=== PATIENT | female | born 1955 | race Caucasian/White ===

== ENCOUNTER 2023-10-15 12:48 | Inpatient (IN) | payer MEDICARE ==
[~2023-10-15] VITALS: Ht 172.7 cm; Wt 143.3 kg
[2023-10-15 13:36] LABS: BASOPHILS % 0.5 % (0.0-1.0); EOSINOPHILS # (AUTO) 0.1 (0.0-0.4); EOSINOPHILS % 1.2 % (0.0-6.0); HEMATOCRIT 46.6 % (34.2-44.1); HEMOGLOBIN 13.1 g/dL (12.0-16.0); LYMPHOCYTES # (AUTO) 0.9 (1.0-3.2); LYMPHOCYTES % 16.3 % (18.0-39.1); MEAN CORPUSCULAR HEMOGLOBIN 25.1 pg (28-32); MEAN CORPUSCULAR HGB CONC 28.1 g/dL (31-35); MEAN CORPUSCULAR VOLUME 89.4 fL (81-99); MONOCYTES # (AUTO) 0.5 (0.2-0.8); MONOCYTES % 8.1 % (4.4-11.3); NEUTROPHILS # (AUTO) 4.2 (2.1-6.9); NEUTROPHILS % 73.6 % (38.7-80.0); PLATELET COUNT 218 x10e3/uL (140-360); RED BLOOD COUNT 5.21 x10e6/uL (3.6-5.1); RED CELL DISTRIBUTION WIDTH 15.4 % (11.7-14.4); WHITE BLOOD COUNT 5.77 x10e3/uL (4.8-10.8)
[2023-10-15 13:52] LABS: ALBUMIN 3.4 g/dL (3.5-5.0); ALBUMIN/GLOBULIN RATIO 0.8 (0.8-2.0); ANION GAP 14.3 mmol/L (8-16); BILIRUBIN,TOTAL 1.6 mg/dL (0.2-1.2); CALCIUM 9.4 mg/dL (8.4-10.2); CREATININE, SERUM 0.98 mg/dL (0.57-1.11); TOTAL PROTEIN 7.8 g/dL (6.5-8.1)
[2023-10-15 13:54] LABS: POTASSIUM 5.3 mmol/L (3.5-5.1)
[2023-10-15 13:59] LABS: TROPONIN I 0.071 ng/mL (0-0.300)
[2023-10-15] MEDS ORDERED: IOPAMIDOL 370 MG/ML 100 ML INFUS..BTL INJ ONE (14:20)
[2023-10-15 15:14] LABS: ALBUMIN 3.3 g/dL (3.5-5.0); ALBUMIN/GLOBULIN RATIO 0.8 (0.8-2.0); ANION GAP 10.9 mmol/L (8-16); BILIRUBIN,TOTAL 1.5 mg/dL (0.2-1.2); CALCIUM 9.2 mg/dL (8.4-10.2); CREATININE, SERUM 0.96 mg/dL (0.57-1.11); POTASSIUM 4.9 mmol/L (3.5-5.1); TOTAL PROTEIN 7.4 g/dL (6.5-8.1)
[2023-10-15] MEDS ORDERED: SODIUM CHLORIDE FLUSH 10 ML SYR INJ PRN (16:00)
[2023-10-15] MEDS ORDERED: ONDANSETRON HCL INJ 2MG/ML 2ML 2 MG/ML VIAL IV PRN (16:00)
[2023-10-15] MEDS: FUROSEMIDE INJ 10 MG/ML 4 ML VIAL IV ONE (16:11)
[2023-10-15 17:47] VITALS: BP 117/57; PULSE 94; RESP 20; O2SAT 97
[2023-10-15 18:00] VITALS: BP 117/57; PULSE 94; RESP 20; O2SAT 97
[2023-10-15] MEDS ORDERED: vitamin b12 IM (18:06)
[2023-10-15] MEDS ORDERED: B 12 (18:06)
[2023-10-15] MEDS ORDERED: SYNTHROID100 MCG PO (18:06)
[2023-10-15] MEDS ORDERED: VITAMIN D3250 MCG PO (18:06)
[2023-10-15] MEDS ORDERED: LANTUS 3ML100 UNITS/ SC (19:13)
[2023-10-15 20:00] VITALS: BP 157/96; PULSE 106; RESP 21; TEMP 97.7; O2SAT 95
[2023-10-15 20:40] VITALS: BP 157/96; PULSE 106; PULSE 206; RESP 21; TEMP 97.7; O2SAT 95
[2023-10-15 21:00] VITALS: BP 157/96; PULSE 106; PULSE 206; RESP 21; TEMP 97.7; O2SAT 95
[2023-10-16] VITALS (53 sets, daily range): BP systolic 112–207; BP diastolic 66–157; PULSE 87–109; RESP 17–30; TEMP 97.1–98.9; O2SAT 88–100
[2023-10-16 06:07] LABS: BASOPHILS % 0.4 % (0.0-1.0); EOSINOPHILS % 0.5 % (0.0-6.0); HEMOGLOBIN 13.7 g/dL (12.0-16.0); LYMPHOCYTES # (AUTO) 0.8 (1.0-3.2); LYMPHOCYTES % 10.4 % (18.0-39.1); MEAN CORPUSCULAR HGB CONC 27.4 g/dL (31-35); MEAN CORPUSCULAR VOLUME 91.1 fL (81-99); MONOCYTES # (AUTO) 0.8 (0.2-0.8); MONOCYTES % 10.4 % (4.4-11.3); NEUTROPHILS # (AUTO) 5.7 (2.1-6.9); NEUTROPHILS % 77.5 % (38.7-80.0); PLATELET COUNT 260 x10e3/uL (140-360); RED BLOOD COUNT 5.49 x10e6/uL (3.6-5.1); RED CELL DISTRIBUTION WIDTH 15.2 % (11.7-14.4); WHITE BLOOD COUNT 7.34 x10e3/uL (4.8-10.8)
[2023-10-16 06:13] LABS: ABG PCO2 118 mmHg (35-45); ABG PH 7.16 (7.35-7.45); ABG PO2 85 mmHg (80-105)
[2023-10-16 06:14] LABS: ABG HCO3 42 mmol/L (22-26); ABG TCO2 45
[2023-10-16] MEDS ORDERED: MAGNESIUM/ALUMINUM/SIMETHICONE 30 ML UDC PO PRN (06:15)
[2023-10-16] MEDS ORDERED: GUAIFENESIN/DEXTROMETHORPHAN LIQD 5 ML UDC PO PRN (06:15)
[2023-10-16] MEDS ORDERED: MELATONIN 3 MG TAB PO PRN (06:15)
[2023-10-16] MEDS ORDERED: DEXTROSE 50% SYRINGE 50 ML IV PRN (06:15)
[2023-10-16 06:27] LABS: TROPONIN I 0.031 ng/mL (0-0.300)
[2023-10-16] MEDS: FUROSEMIDE INJ 10 MG/ML 4 ML VIAL IV STA (06:51)
[2023-10-16] MEDS: INSULIN REGULAR, HUMAN 100 UNIT/1 ML SQ SCH (06:53)
[2023-10-16] MEDS: METHYLPREDNISOLONE SOD SUCC 125 MG/2ML VIAL IV ONE (06:57)
[2023-10-16] MEDS: INSULIN GLARGINE 100 UNITS/ML VIAL SQ SCH (07:58)
[2023-10-16] MEDS: CEFTRIAXONE 2 GM in SODIUM CHLORIDE 0.9% 100 ML IV SCH (07:58)
[2023-10-16 08:38] LABS: ABG HCO3 44 mmol/L (22-26); ABG PCO2 87 mmHg (35-45); ABG PH 7.31 (7.35-7.45); ABG PO2 156 mmHg (80-105); ABG TCO2 47
[2023-10-16] MEDS ORDERED: POLYETHYLENE GLYCOL 3350 17 GM PACK PO PRN (08:45)
[2023-10-16] MEDS: IPRATROPIUM BROMIDE 0.02% 2.5 ML NEB NEB SCH (08:55)
[2023-10-16] MEDS: ALBUTEROL SULF 0.083% NEB SOLN 3 ML NEB NEB PRN (08:55)
[2023-10-16] MEDS: DOCUSATE SODIUM 100 MG CAP PO SCH (09:00)
[2023-10-16 09:24] LABS: ALBUMIN 3.3 g/dL (3.5-5.0); ALBUMIN/GLOBULIN RATIO 0.7 (0.8-2.0); ANION GAP 15.1 mmol/L (8-16); BILIRUBIN,TOTAL 1.4 mg/dL (0.2-1.2); CALCIUM 9.2 mg/dL (8.4-10.2); CHOL/HDL RATIO 2.7 (3.0-3.6); CREATININE, SERUM 1.16 mg/dL (0.57-1.11); MAGNESIUM 2.2 MG/DL (1.3-2.1); PHOSPHORUS 6.6 MG/DL (2.3-4.7); TOTAL PROTEIN 7.8 g/dL (6.5-8.1)
[2023-10-16 09:25] LABS: POTASSIUM 6.1 mmol/L (3.5-5.1)
[2023-10-16 09:45] LABS: FREE T4 (FREE THYROXINE) 1.01 ng/dL (0.8-1.8); THYROID STIMULATING HORMONE 0.819 uIU/mL (0.350-4.940)
[2023-10-16 09:48] LABS: TROPONIN I 0.04 ng/mL (0-0.300)
[2023-10-16] MEDS: FAMOTIDINE 20 MG/2 ML VIAL IV SCH (10:22)
[2023-10-16] MEDS: HYDRALAZINE HCL 20 MG/ML VIAL IV PRN (11:17)
[2023-10-16 13:19] LABS: CLARITY,URINE CLEAR (CLEAR); COLOR,URINE YELLOW (YELLOW); PH,URINE 5.5 (5 - 7)
[2023-10-16 13:20] LABS: BILIRUBIN,URINE NEGATIVE (NEGATIVE); GLUCOSE, URINE 500 (NEGATIVE); KETONES,URINE NEGATIVE (NEGATIVE); LEUKOCYTE ESTERASE ,URINE NEGATIVE (NEGATIVE); NITRITE,URINE NEGATIVE (NEGATIVE); PROTEIN,URINE DIPSTICK NEGATIVE (NEGATIVE); URINE UROBILINOGEN 0.2 mg/dL (0.2 - 1)
[2023-10-16 13:30] LABS: BACTERIA,URINE FEW /HPF; EPITHELIAL CELLS,URINE FEW /LPF; HYALINE CASTS 0-1 (0-1); WBC,URINE (MAN) 0-5 /HPF (0-5)
[2023-10-16 13:43] LABS: TROPONIN I 0.034 ng/mL (0-0.300)
[2023-10-16] MEDS ORDERED: IOPAMIDOL 370 MG/ML 100 ML INFUS..BTL INJ ONE (15:07)
[2023-10-16] MEDS: ENOXAPARIN SOD INJ 40 MG/0.4 ML SYR SC SCH (16:00)
[2023-10-16] MEDS: FUROSEMIDE INJ 10 MG/ML 4 ML VIAL IV ONE (16:47)
[2023-10-16 16:56] LABS: ABG PH 7.36 (7.35-7.45)
[2023-10-16 16:57] LABS: ABG HCO3 45 mmol/L (22-26); ABG PCO2 76 mmHg (35-45); ABG PO2 72 mmHg (80-105); ABG TCO2 47
[2023-10-17] VITALS (15 sets, daily range): BP systolic 99–136; BP diastolic 63–80; PULSE 85–101; RESP 18–29; TEMP 97.9–99.3; O2SAT 88–100
[2023-10-17] MEDS: LEVOTHYROXINE SODIUM 100 MCG TAB PO SCH (06:41)
[2023-10-17 07:00] LABS: BASOPHILS % 0.1 % (0.0-1.0); HEMATOCRIT 42.8 % (34.2-44.1); HEMOGLOBIN 12.4 g/dL (12.0-16.0); LYMPHOCYTES # (AUTO) 0.7 (1.0-3.2); MEAN CORPUSCULAR HEMOGLOBIN 25.4 pg (28-32); MEAN CORPUSCULAR VOLUME 87.5 fL (81-99); MONOCYTES % 12.7 % (4.4-11.3); NEUTROPHILS # (AUTO) 6.4 (2.1-6.9); NEUTROPHILS % 77.7 % (38.7-80.0); PLATELET COUNT 214 x10e3/uL (140-360); RED BLOOD COUNT 4.89 x10e6/uL (3.6-5.1); RED CELL DISTRIBUTION WIDTH 15.1 % (11.7-14.4); WHITE BLOOD COUNT 8.21 x10e3/uL (4.8-10.8)
[2023-10-17 07:20] LABS: ALBUMIN 3.1 g/dL (3.5-5.0); ALBUMIN/GLOBULIN RATIO 0.8 (0.8-2.0); ANION GAP 11.4 mmol/L (8-16); CREATININE, SERUM 0.93 mg/dL (0.57-1.11); POTASSIUM 4.4 mmol/L (3.5-5.1); TOTAL PROTEIN 6.8 g/dL (6.5-8.1)
[2023-10-17] MEDS: INSULIN GLARGINE 100 UNITS/ML VIAL SQ SCH (08:06)
[2023-10-17] MEDS: ASPIRIN 81 MG CHEW TAB PO ONE (18:50)
[2023-10-18] VITALS (12 sets, daily range): BP systolic 109–157; BP diastolic 40–95; PULSE 92–102; RESP 19–22; TEMP 97.6–98.9; O2SAT 92–97
[2023-10-18 06:20] LABS: BASOPHILS % 0.5 % (0.0-1.0); EOSINOPHILS # (AUTO) 0.1 (0.0-0.4); EOSINOPHILS % 1.3 % (0.0-6.0); HEMATOCRIT 42.4 % (34.2-44.1); HEMOGLOBIN 12.1 g/dL (12.0-16.0); LYMPHOCYTES % 12.8 % (18.0-39.1); MEAN CORPUSCULAR HEMOGLOBIN 25.1 pg (28-32); MEAN CORPUSCULAR HGB CONC 28.5 g/dL (31-35); MONOCYTES # (AUTO) 0.9 (0.2-0.8); MONOCYTES % 11.5 % (4.4-11.3); NEUTROPHILS # (AUTO) 5.7 (2.1-6.9); NEUTROPHILS % 73.5 % (38.7-80.0); PLATELET COUNT 208 x10e3/uL (140-360); RED BLOOD COUNT 4.82 x10e6/uL (3.6-5.1); RED CELL DISTRIBUTION WIDTH 15.3 % (11.7-14.4); WHITE BLOOD COUNT 7.74 x10e3/uL (4.8-10.8)
[2023-10-18 06:45] LABS: ANION GAP 15.3 mmol/L (8-16); CALCIUM 8.5 mg/dL (8.4-10.2); CREATININE, SERUM 0.83 mg/dL (0.57-1.11); MAGNESIUM 2.2 MG/DL (1.3-2.1); PHOSPHORUS 4.4 MG/DL (2.3-4.7); POTASSIUM 4.3 mmol/L (3.5-5.1)
[2023-10-18] MEDS: SODIUM CHLORIDE 0.9% 250ML 250 ML ONE (07:05)
[2023-10-19] VITALS (12 sets, daily range): BP systolic 120–172; BP diastolic 56–102; PULSE 75–104; RESP 18–25; TEMP 97.8–99.2; O2SAT 3–98
[2023-10-19 11:01] LABS: ABG PH 7.26 (7.35-7.45)
[2023-10-19 11:02] LABS: ABG HCO3 44 mmol/L (22-26); ABG PCO2 98 mmHg (35-45); ABG PO2 69 mmHg (80-105); ABG TCO2 47
[2023-10-19] MEDS ORDERED: ONDANSETRON HCL 4 MG ORAL DISINTEGRATING TAB PO PRN (12:45)
[2023-10-20] VITALS (16 sets, daily range): BP systolic 112–163; BP diastolic 58–89; PULSE 71–101; RESP 16–24; TEMP 97.6–98.4; O2SAT 94–100
[2023-10-20] MEDS: ACETAMINOPHEN 325 MG TAB PO PRN (06:50)
[2023-10-20] MEDS: AZITHROMYCIN 250 MG TAB PO SCH (06:50)
[2023-10-20 06:59] LABS: ANION GAP 8.5 mmol/L (8-16); CREATININE, SERUM 0.72 mg/dL (0.57-1.11); POTASSIUM 4.5 mmol/L (3.5-5.1)
[2023-10-20 07:02] LABS: BASOPHILS % 0.6 % (0.0-1.0); EOSINOPHILS # (AUTO) 0.2 (0.0-0.4); EOSINOPHILS % 3.3 % (0.0-6.0); HEMATOCRIT 46.8 % (34.2-44.1); LYMPHOCYTES # (AUTO) 0.8 (1.0-3.2); LYMPHOCYTES % 11.3 % (18.0-39.1); MEAN CORPUSCULAR HEMOGLOBIN 25.5 pg (28-32); MEAN CORPUSCULAR HGB CONC 27.8 g/dL (31-35); MEAN CORPUSCULAR VOLUME 91.9 fL (81-99); MONOCYTES # (AUTO) 0.7 (0.2-0.8); MONOCYTES % 10.2 % (4.4-11.3); NEUTROPHILS # (AUTO) 5.3 (2.1-6.9); NEUTROPHILS % 74.2 % (38.7-80.0); PLATELET COUNT 166 x10e3/uL (140-360); RED BLOOD COUNT 5.09 x10e6/uL (3.6-5.1); RED CELL DISTRIBUTION WIDTH 15.4 % (11.7-14.4); WHITE BLOOD COUNT 7.18 x10e3/uL (4.8-10.8)
[2023-10-20] MEDS ORDERED: CEFTRIAXONE 2 GM VIAL ONE (08:04)
[2023-10-20] MEDS: IBUPROFEN 600 MG TAB PO PRN (08:10)
[2023-10-20] MEDS: NYSTATIN 15 GM POWDER UD BTL TOP SCH (17:32)
[2023-10-21] MEDS ORDERED: MUPIROCIN 2% OINT 22 GM TUBE TOP SCH (09:00)
== END 2023-10-20 18:23 | DRG 291 ==
LOC: ER 13:21 → ERHOLD 15:52 → MED/SURG2 16:56 → ICU 10-16 06:26 → OBSVTOIN 10-16 09:08 → MED/SURG2 10-17 16:40 → ICU 10-19 15:19
PROVIDERS: ADMIT Internal Medicine; ATTEND Internal Medicine
PROC: 5A09357 Assistance with Respiratory Ventilation, Less than 24 Consecutive Hours, Continuous Positive Airway Pressure (ICD-10-PCS; principal; 2023-10-16)
PROC: 4A033R1 Measurement of Arterial Saturation, Peripheral, Percutaneous Approach (ICD-10-PCS; 2023-10-16)
DX: I11.0 Hypertensive heart disease with heart failure (principal); G93.41 Metabolic encephalopathy; J96.22 Acute and chronic respiratory failure with hypercapnia; I50.31 Acute diastolic (congestive) heart failure; J96.21 Acute and chronic respiratory failure with hypoxia; E66.2 Morbid (severe) obesity with alveolar hypoventilation; Z68.42 Body mass index [BMI] 45.0-49.9, adult; E11.65 Type 2 diabetes mellitus with hyperglycemia; R53.81 Other malaise; G25.3 Myoclonus; E53.8 Deficiency of other specified B group vitamins; Z66 Do not resuscitate; E03.9 Hypothyroidism, unspecified; E11.40 Type 2 diabetes mellitus with diabetic neuropathy, unspecified; Z99.81 Dependence on supplemental oxygen; Z20.822 Contact with and (suspected) exposure to COVID-19
CPT/HCPCS: 36415; 36569; 36600; 70450; 71045; 71275; 74177; 80048; 80053; 80061; 81001; 82550; 82607; 82805; 82948; 83036; 83690; 83735; 83880; 84100; 84132; 84439; 84443; 84484; 85025; 87040; 87086; 87400; 93005; 93306; 94660; 94760; 94799; 96372; 99252; 99284; G0378; J0360; J0696; J1650; J1815; J1940; J2930; J7050; Q9967; U0002

== ENCOUNTER 2024-05-12 13:49 | Inpatient (IN) | payer MEDICARE, OTHER ==
[~2024-05-12] VITALS: Ht 172.7 cm; Wt 171.5 kg
[~2024-05-12 13:49] MED LIST: B 12; LANTUS 3ML100 UNITS/ SC; SYNTHROID100 MCG PO; VITAMIN D3250 MCG PO; vitamin b12 IM
[2024-05-12 13:54] VITALS: TEMP 98.8
[2024-05-12 16:42] VITALS: PULSE 85; RESP 22; O2SAT 96
[2024-05-12 16:44] LABS: BASOPHILS % 0.3 % (0.0-1.0); EOSINOPHILS # (AUTO) 0.4 (0.0-0.4); EOSINOPHILS % 6.3 % (0.0-6.0); HEMATOCRIT 41.1 % (34.2-44.1); HEMOGLOBIN 11.7 g/dL (12.0-16.0); LYMPHOCYTES # (AUTO) 0.9 (1.0-3.2); LYMPHOCYTES % 12.7 % (18.0-39.1); MEAN CORPUSCULAR HEMOGLOBIN 25.6 pg (28-32); MEAN CORPUSCULAR HGB CONC 28.5 g/dL (31-35); MEAN CORPUSCULAR VOLUME 89.9 fL (81-99); MONOCYTES # (AUTO) 0.7 (0.2-0.8); MONOCYTES % 9.6 % (4.4-11.3); NEUTROPHILS # (AUTO) 4.8 (2.1-6.9); NEUTROPHILS % 70.7 % (38.7-80.0); PLATELET COUNT 195 x10e3/uL (140-360); RED BLOOD COUNT 4.57 x10e6/uL (3.6-5.1); RED CELL DISTRIBUTION WIDTH 16.5 % (11.7-14.4); WHITE BLOOD COUNT 6.78 x10e3/uL (4.8-10.8)
[2024-05-12 17:02] LABS: ANION GAP 15.8 mmol/L (8-16); CALCIUM 9.1 mg/dL (8.4-10.2); CREATININE, SERUM 0.87 mg/dL (0.57-1.11); POTASSIUM 4.8 mmol/L (3.5-5.1)
[2024-05-12 18:00] VITALS: PULSE 92; RESP 18
[2024-05-12 20:00] VITALS: BP 145/72; PULSE 92; RESP 19; TEMP 98.2; O2SAT 98
[2024-05-12] MEDS ORDERED: LEVOTHYROXINE100 MCG PO (20:04)
[2024-05-12] MEDS ORDERED: VITAMIN D250 MCG PO (20:04)
[2024-05-12] MEDS ORDERED: FUROSEMIDE40 MG PO (20:04)
[2024-05-12 21:00] VITALS: BP 145/72; PULSE 92; RESP 19; TEMP 98.2; O2SAT 98
[2024-05-13] VITALS (16 sets, daily range): BP systolic 126–174; BP diastolic 63–86; PULSE 69–107; RESP 16–27; TEMP 97.9–98.6; O2SAT 94–100
[2024-05-13 07:23] LABS: BASOPHILS % 0.5 % (0.0-1.0); EOSINOPHILS # (AUTO) 0.3 (0.0-0.4); EOSINOPHILS % 5.7 % (0.0-6.0); HEMATOCRIT 43.8 % (34.2-44.1); HEMOGLOBIN 12.2 g/dL (12.0-16.0); LYMPHOCYTES # (AUTO) 0.7 (1.0-3.2); LYMPHOCYTES % 11.4 % (18.0-39.1); MEAN CORPUSCULAR HEMOGLOBIN 25.7 pg (28-32); MEAN CORPUSCULAR HGB CONC 27.9 g/dL (31-35); MEAN CORPUSCULAR VOLUME 92.2 fL (81-99); MONOCYTES # (AUTO) 0.6 (0.2-0.8); MONOCYTES % 9.6 % (4.4-11.3); NEUTROPHILS # (AUTO) 4.2 (2.1-6.9); NEUTROPHILS % 72.5 % (38.7-80.0); PLATELET COUNT 203 x10e3/uL (140-360); RED BLOOD COUNT 4.75 x10e6/uL (3.6-5.1); RED CELL DISTRIBUTION WIDTH 16.6 % (11.7-14.4); WHITE BLOOD COUNT 5.81 x10e3/uL (4.8-10.8)
[2024-05-13 07:52] LABS: ANION GAP 10.1 mmol/L (8-16); CALCIUM 9.2 mg/dL (8.4-10.2); CREATININE, SERUM 0.89 mg/dL (0.57-1.11); POTASSIUM 5.1 mmol/L (3.5-5.1)
[2024-05-13] MEDS ORDERED: DEXTROSE 50% SYRINGE 50 ML IV PRN (09:15)
[2024-05-13] MEDS: FUROSEMIDE INJ 10 MG/ML 4 ML VIAL IV SCH (10:11)
[2024-05-13] MEDS: LEVOTHYROXINE SODIUM 100 MCG TAB PO SCH (10:11)
[2024-05-13] MEDS: INSULIN GLARGINE 100 UNITS/ML VIAL SQ ONE (10:12)
[2024-05-13] MEDS: INSULIN LISPRO 100 UNIT/1 ML 3ML VIAL SQ ONE (10:13)
[2024-05-13] MEDS: POTASSIUM CHLORIDE 10MEQ EA PO SCH (10:19)
[2024-05-13] MEDS: INSULIN LISPRO 100 UNIT/1 ML 3ML VIAL SQ SCH (11:58)
[2024-05-13] MEDS ORDERED: LABETALOL HCL 5 MG/ML 20ML VIAL IV PRN (13:30)
[2024-05-13 14:36] LABS: ABG PH 7.19 (7.35-7.45)
[2024-05-13 14:37] LABS: ABG PCO2 116 mmHg (35-45); ABG PO2 107 mmHg (80-105)
[2024-05-13 14:38] LABS: ABG HCO3 44 mmol/L (22-26); ABG TCO2 47
[2024-05-13 16:31] LABS: ABG PH 7.27 (7.35-7.45)
[2024-05-13 16:32] LABS: ABG HCO3 44 mmol/L (22-26); ABG PCO2 98 mmHg (35-45); ABG PO2 81 mmHg (80-105); ABG TCO2 47
[2024-05-13] MEDS: ENOXAPARIN SOD INJ 40 MG/0.4 ML SYR SC SCH (19:22)
[2024-05-13] MEDS: INSULIN GLARGINE 100 UNITS/ML VIAL SQ SCH (20:25)
[2024-05-14] VITALS (17 sets, daily range): BP systolic 116–150; BP diastolic 61–78; PULSE 65–84; RESP 15–28; TEMP 97.9–98.4; O2SAT 94–100
[2024-05-14 06:33] LABS: BASOPHILS % 0.7 % (0.0-1.0); EOSINOPHILS # (AUTO) 0.2 (0.0-0.4); EOSINOPHILS % 2.8 % (0.0-6.0); HEMATOCRIT 41.5 % (34.2-44.1); HEMOGLOBIN 11.4 g/dL (12.0-16.0); LYMPHOCYTES # (AUTO) 0.7 (1.0-3.2); LYMPHOCYTES % 12.5 % (18.0-39.1); MEAN CORPUSCULAR HEMOGLOBIN 25.4 pg (28-32); MEAN CORPUSCULAR HGB CONC 27.5 g/dL (31-35); MEAN CORPUSCULAR VOLUME 92.6 fL (81-99); MONOCYTES # (AUTO) 0.6 (0.2-0.8); MONOCYTES % 10.4 % (4.4-11.3); NEUTROPHILS # (AUTO) 3.9 (2.1-6.9); PLATELET COUNT 194 x10e3/uL (140-360); RED BLOOD COUNT 4.48 x10e6/uL (3.6-5.1); RED CELL DISTRIBUTION WIDTH 16.2 % (11.7-14.4); WHITE BLOOD COUNT 5.36 x10e3/uL (4.8-10.8)
[2024-05-14 06:58] LABS: ANION GAP 9.9 mmol/L (8-16); CREATININE, SERUM 0.76 mg/dL (0.57-1.11); POTASSIUM 4.9 mmol/L (3.5-5.1)
[2024-05-14 07:19] LABS: MAGNESIUM 2.3 MG/DL (1.3-2.1); PHOSPHORUS 3.3 MG/DL (2.3-4.7)
[2024-05-14 08:56] LABS: ABG HCO3 45 mmol/L (22-26); ABG PCO2 92 mmHg (35-45); ABG PO2 93 mmHg (80-105); ABG TCO2 48
[2024-05-14 09:53] LABS: THYROID STIMULATING HORMONE 0.385 uIU/mL (0.350-4.940)
[2024-05-14] MEDS: AMMONIUM LACTATE 12% LOTION 225GM BTL TOP SCH (11:18)
[2024-05-14] MEDS: INSULIN GLARGINE 100 UNITS/ML VIAL SQ SCH (20:02)
[2024-05-15] VITALS (8 sets, daily range): BP systolic 118–158; BP diastolic 65–83; PULSE 69–86; RESP 18–28; TEMP 98.5–98.8; O2SAT 90–98
[2024-05-15 06:43] LABS: BASOPHILS % 0.4 % (0.0-1.0); EOSINOPHILS # (AUTO) 0.3 (0.0-0.4); EOSINOPHILS % 5.3 % (0.0-6.0); HEMATOCRIT 40.7 % (34.2-44.1); HEMOGLOBIN 11.2 g/dL (12.0-16.0); LYMPHOCYTES # (AUTO) 0.8 (1.0-3.2); LYMPHOCYTES % 15.4 % (18.0-39.1); MEAN CORPUSCULAR HEMOGLOBIN 25.5 pg (28-32); MEAN CORPUSCULAR HGB CONC 27.5 g/dL (31-35); MEAN CORPUSCULAR VOLUME 92.5 fL (81-99); MONOCYTES # (AUTO) 0.5 (0.2-0.8); NEUTROPHILS # (AUTO) 3.5 (2.1-6.9); NEUTROPHILS % 68.5 % (38.7-80.0); PLATELET COUNT 186 x10e3/uL (140-360); RED CELL DISTRIBUTION WIDTH 15.9 % (11.7-14.4); WHITE BLOOD COUNT 5.08 x10e3/uL (4.8-10.8)
[2024-05-15 07:14] LABS: ANION GAP 10.4 mmol/L (8-16); CALCIUM 8.9 mg/dL (8.4-10.2); CREATININE, SERUM 0.7 mg/dL (0.57-1.11); POTASSIUM 4.4 mmol/L (3.5-5.1)
[2024-05-15 08:34] LABS: ABG HCO3 42 mmol/L (22-26); ABG PCO2 61 mmHg (35-45); ABG PH 7.45 (7.35-7.45); ABG PO2 72 mmHg (80-105); ABG TCO2 44
[2024-05-16] VITALS (17 sets, daily range): BP systolic 136–168; BP diastolic 69–99; PULSE 67–96; RESP 18–32; TEMP 98.5–98.6; O2SAT 73–100
[2024-05-17] VITALS (9 sets, daily range): BP systolic 120–158; BP diastolic 78–89; PULSE 78–95; RESP 18–26; TEMP 98.2–98.5; O2SAT 95–100
[2024-05-17] MEDS: CARVEDILOL 3.125 MG TAB PO SCH (09:05)
[2024-05-17] MEDS: ONDANSETRON HCL INJ 2MG/ML 2ML 2 MG/ML VIAL IV PRN (09:28)
[2024-05-17 09:30] LABS: BASOPHILS % 0.5 % (0.0-1.0); EOSINOPHILS # (AUTO) 0.2 (0.0-0.4); EOSINOPHILS % 3.7 % (0.0-6.0); HEMATOCRIT 45.5 % (34.2-44.1); HEMOGLOBIN 13.2 g/dL (12.0-16.0); LYMPHOCYTES # (AUTO) 0.8 (1.0-3.2); LYMPHOCYTES % 12.3 % (18.0-39.1); MEAN CORPUSCULAR HEMOGLOBIN 25.8 pg (28-32); MONOCYTES # (AUTO) 0.7 (0.2-0.8); MONOCYTES % 11.3 % (4.4-11.3); NEUTROPHILS # (AUTO) 4.5 (2.1-6.9); NEUTROPHILS % 71.7 % (38.7-80.0); PLATELET COUNT 206 x10e3/uL (140-360); RED BLOOD COUNT 5.11 x10e6/uL (3.6-5.1); RED CELL DISTRIBUTION WIDTH 16.3 % (11.7-14.4); WHITE BLOOD COUNT 6.26 x10e3/uL (4.8-10.8)
[2024-05-17] MEDS ORDERED: ONDANSETRON HCL 4 MG ORAL DISINTEGRATING TAB PO PRN (10:00)
[2024-05-17 10:02] LABS: ANION GAP 11.4 mmol/L (8-16); CALCIUM 9.1 mg/dL (8.4-10.2); CREATININE, SERUM 0.76 mg/dL (0.57-1.11); POTASSIUM 4.4 mmol/L (3.5-5.1)
[2024-05-17 10:13] LABS: MAGNESIUM 2.2 MG/DL (1.3-2.1)
[2024-05-17] MEDS: METOCLOPRAMIDE HCL 10 MG TAB PO SCH (12:01)
[2024-05-17] MEDS: FUROSEMIDE 40 MG TAB PO SCH (12:01)
[2024-05-17 14:06] LABS: BILIRUBIN,URINE NEGATIVE (NEGATIVE); CLARITY,URINE CLEAR (CLEAR); COLOR,URINE YELLOW (YELLOW); GLUCOSE, URINE NEGATIVE (NEGATIVE); KETONES,URINE NEGATIVE (NEGATIVE); LEUKOCYTE ESTERASE ,URINE TRACE (NEGATIVE); NITRITE,URINE NEGATIVE (NEGATIVE); PH,URINE 6.5 (5 - 7); PROTEIN,URINE DIPSTICK NEGATIVE (NEGATIVE); URINE UROBILINOGEN 0.2 mg/dL (0.2 - 1)
[2024-05-17 14:12] LABS: WBC,URINE (MAN) 0-5 /HPF (0-5)
[2024-05-17 14:13] LABS: BACTERIA,URINE FEW /HPF; EPITHELIAL CELLS,URINE FEW /LPF; RBC,URINE 0-5 /HPF (0-5)
[2024-05-17] MEDS ORDERED: POTASSIUM CHLORIDE 10MEQ EA PO SCH (17:00)
[2024-05-17] MEDS ORDERED: CEFUROXIME AXETIL 250 MG TAB PO SCH (17:00)
== END 2024-05-17 13:40 | DRG 602 ==
LOC: ER 13:58 → ERHOLD 16:14 → MED/SURG3 18:19 → ICU 05-13 14:15
PROVIDERS: ADMIT Internal Medicine; ATTEND Internal Medicine
PROC: 5A09457 Assistance with Respiratory Ventilation, 24-96 Consecutive Hours, Continuous Positive Airway Pressure (ICD-10-PCS; principal; 2024-05-13)
PROC: 02HV33Z Insertion of Infusion Device into Superior Vena Cava, Percutaneous Approach (ICD-10-PCS; 2024-05-13)
DX: L03.116 Cellulitis of left lower limb (principal); I50.33 Acute on chronic diastolic (congestive) heart failure; J96.21 Acute and chronic respiratory failure with hypoxia; J96.22 Acute and chronic respiratory failure with hypercapnia; Z68.44 Body mass index [BMI] 60.0-69.9, adult; E66.2 Morbid (severe) obesity with alveolar hypoventilation; L03.115 Cellulitis of right lower limb; E11.42 Type 2 diabetes mellitus with diabetic polyneuropathy; I11.0 Hypertensive heart disease with heart failure; Z99.81 Dependence on supplemental oxygen; M15.9 Polyosteoarthritis, unspecified; R53.81 Other malaise; E03.9 Hypothyroidism, unspecified; Z91.199 Patient's noncompliance with other medical treatment and regimen due to unspecified reason; Z98.84 Bariatric surgery status; Z98.1 Arthrodesis status; Z90.49 Acquired absence of other specified parts of digestive tract
CPT/HCPCS: 36415; 36569; 36600; 71045; 71250; 80048; 81001; 82805; 82948; 83036; 83735; 84100; 84443; 85025; 93970; 94660; 94799; 99252; 99285; J0690; J1650; J1815; J1940; J2405

== ENCOUNTER 2024-07-16 09:04 | Inpatient (IN) | payer MEDICARE ==
[~2024-07-16] VITALS: Ht 172.7 cm; Wt 164.2 kg
[~2024-07-16 09:04] MED LIST changes: +FUROSEMIDE40 MG PO; +LEVOTHYROXINE100 MCG PO; +VITAMIN D250 MCG PO
[2024-07-16 09:55] LABS: BASOPHILS % 0.2 % (0.0-1.0); HEMATOCRIT 41.9 % (34.2-44.1); HEMOGLOBIN 12.7 g/dL (12.0-16.0); LYMPHOCYTES # (AUTO) 0.5 (1.0-3.2); LYMPHOCYTES % 3.3 % (18.0-39.1); MEAN CORPUSCULAR HEMOGLOBIN 27.6 pg (28-32); MEAN CORPUSCULAR HGB CONC 30.3 g/dL (31-35); MEAN CORPUSCULAR VOLUME 91.1 fL (81-99); MONOCYTES # (AUTO) 0.5 (0.2-0.8); MONOCYTES % 2.8 % (4.4-11.3); NEUTROPHILS # (AUTO) 14.7 (2.1-6.9); NEUTROPHILS % 92.7 % (38.7-80.0); PLATELET COUNT 238 x10e3/uL (140-360); RED CELL DISTRIBUTION WIDTH 18.3 % (11.7-14.4); WHITE BLOOD COUNT 15.88 x10e3/uL (4.8-10.8)
[2024-07-16] MEDS ORDERED: SODIUM CHLORIDE FLUSH 10 ML SYR INJ PRN (10:15)
[2024-07-16] MEDS ORDERED: Morphine 4mg INJECTION 4 MG/ML INJ IV PRN (10:15)
[2024-07-16] MEDS: ACETAMINOPHEN 325 MG TAB PO STA (10:15)
[2024-07-16 10:34] LABS: ALBUMIN 3.4 g/dL (3.5-5.0); ALBUMIN/GLOBULIN RATIO 0.6 (0.8-2.0); ANION GAP 19.2 mmol/L (8-16); BILIRUBIN,TOTAL 1.8 mg/dL (0.2-1.2); CREATININE, SERUM 1.18 mg/dL (0.57-1.11); POTASSIUM 4.2 mmol/L (3.5-5.1)
[2024-07-16 10:40] LABS: TROPONIN I 0.019 ng/mL (0-0.300)
[2024-07-16 10:55] LABS: ABG HCO3 35 mmol/L (22-26); ABG PCO2 54 mmHg (35-45); ABG PH 7.42 (7.35-7.45); ABG PO2 77 mmHg (80-105); ABG TCO2 37
[2024-07-16 11:43] VITALS: PULSE 75; RESP 20; O2SAT 96
[2024-07-16 15:49] VITALS: RESP 22
[2024-07-16] MEDS ORDERED: DEXTROSE 50% SYRINGE 50 ML IV PRN (16:00)
[2024-07-16] MEDS ORDERED: ONDANSETRON HCL INJ 2MG/ML 2ML 2 MG/ML VIAL IV PRN (17:15)
[2024-07-16] MEDS: INSULIN LISPRO 100 UNIT/1 ML 3ML VIAL SQ SCH (18:18)
[2024-07-16 18:19] VITALS: PULSE 91; RESP 20; O2SAT 100
[2024-07-16 18:51] VITALS: PULSE 96; TEMP 98
[2024-07-16 19:07] LABS: TROPONIN I 0.022 ng/mL (0-0.300)
[2024-07-16 21:00] VITALS: BP 136/70; PULSE 99; RESP 23; TEMP 98.9; O2SAT 95
[2024-07-16 23:00] VITALS: BP 130/69; PULSE 98; RESP 18; TEMP 99; O2SAT 93
[2024-07-17] VITALS (26 sets, daily range): BP systolic 112–150; BP diastolic 61–109; PULSE 79–103; RESP 16–30; TEMP 97.6–98.8; O2SAT 92–100
[2024-07-17 06:57] LABS: BASOPHILS % 0.4 % (0.0-1.0); EOSINOPHILS # (AUTO) 0.1 (0.0-0.4); EOSINOPHILS % 0.9 % (0.0-6.0); HEMATOCRIT 40.2 % (34.2-44.1); HEMOGLOBIN 11.1 g/dL (12.0-16.0); LYMPHOCYTES # (AUTO) 0.8 (1.0-3.2); LYMPHOCYTES % 6.9 % (18.0-39.1); MEAN CORPUSCULAR HEMOGLOBIN 27.1 pg (28-32); MEAN CORPUSCULAR HGB CONC 27.6 g/dL (31-35); MEAN CORPUSCULAR VOLUME 98.3 fL (81-99); MONOCYTES # (AUTO) 0.9 (0.2-0.8); NEUTROPHILS # (AUTO) 9.3 (2.1-6.9); NEUTROPHILS % 82.9 % (38.7-80.0); PLATELET COUNT 185 x10e3/uL (140-360); RED BLOOD COUNT 4.09 x10e6/uL (3.6-5.1); RED CELL DISTRIBUTION WIDTH 18.2 % (11.7-14.4); WHITE BLOOD COUNT 11.26 x10e3/uL (4.8-10.8)
[2024-07-17 07:30] LABS: ALBUMIN 2.8 g/dL (3.5-5.0); ALBUMIN/GLOBULIN RATIO 0.6 (0.8-2.0); ANION GAP 14.6 mmol/L (8-16); CALCIUM 9.3 mg/dL (8.4-10.2); CREATININE, SERUM 0.92 mg/dL (0.57-1.11); POTASSIUM 4.6 mmol/L (3.5-5.1); TOTAL PROTEIN 7.8 g/dL (6.5-8.1)
[2024-07-17 07:58] LABS: TROPONIN I 0.02 ng/mL (0-0.300)
[2024-07-17] MEDS: LEVOTHYROXINE SODIUM 100 MCG TAB PO SCH (08:00)
[2024-07-17] MEDS ORDERED: LEVOTHYROXINE SODIUM 100 MCG TAB PO SCH (09:00)
[2024-07-17] MEDS: ENOXAPARIN SOD INJ 40 MG/0.4 ML SYR SC SCH (16:56)
[2024-07-17] MEDS: ALBUTEROL/IPRATROPIUM 3 ML NEB NEB PRN (18:58)
[2024-07-17] MEDS: INSULIN GLARGINE 100 UNITS/ML VIAL SC SCH (20:07)
[2024-07-18] VITALS (19 sets, daily range): BP systolic 125–159; BP diastolic 68–84; PULSE 75–105; RESP 12–40; TEMP 98.1–98.9; O2SAT 85–99
[2024-07-18] MEDS: ONDANSETRON HCL INJ 2MG/ML 2ML 2 MG/ML VIAL IV PRN (07:31)
[2024-07-18] MEDS: METHYLPREDNISOLONE SOD SUCC 125 MG/2ML VIAL IV ONE (15:25)
[2024-07-18 16:26] LABS: ABG PH 7.23 (7.35-7.45)
[2024-07-18 16:27] LABS: ABG HCO3 42 mmol/L (22-26); ABG PCO2 101 mmHg (35-45); ABG PO2 70 mmHg (80-105); ABG TCO2 45
[2024-07-18 18:31] LABS: ABG PH 7.23 (7.35-7.45)
[2024-07-18 18:32] LABS: ABG HCO3 42 mmol/L (22-26); ABG PCO2 101 mmHg (35-45); ABG PO2 70 mmHg (80-105); ABG TCO2 45
[2024-07-18 18:35] LABS: ABG HCO3 42 mmol/L (22-26); ABG PCO2 97 mmHg (35-45); ABG PH 7.25 (7.35-7.45); ABG PO2 103 mmHg (80-105); ABG TCO2 45
[2024-07-19] VITALS (31 sets, daily range): BP systolic 98–154; BP diastolic 61–91; PULSE 69–98; RESP 15–34; TEMP 98–98.6; O2SAT 95–100
[2024-07-19] MEDS: FUROSEMIDE INJ 10 MG/ML 4 ML VIAL IV ONE (08:27)
[2024-07-19 08:29] LABS: BASOPHILS % 0.2 % (0.0-1.0); HEMATOCRIT 39.3 % (34.2-44.1); LYMPHOCYTES # (AUTO) 0.5 (1.0-3.2); LYMPHOCYTES % 9.7 % (18.0-39.1); MEAN CORPUSCULAR HEMOGLOBIN 27.5 pg (28-32); MEAN CORPUSCULAR VOLUME 98.3 fL (81-99); MONOCYTES # (AUTO) 0.5 (0.2-0.8); MONOCYTES % 9.3 % (4.4-11.3); NEUTROPHILS # (AUTO) 4.5 (2.1-6.9); NEUTROPHILS % 79.9 % (38.7-80.0); PLATELET COUNT 193 x10e3/uL (140-360); RED CELL DISTRIBUTION WIDTH 16.9 % (11.7-14.4); WHITE BLOOD COUNT 5.59 x10e3/uL (4.8-10.8)
[2024-07-19 09:05] LABS: ANION GAP 14.9 mmol/L (8-16); CALCIUM 9.3 mg/dL (8.4-10.2); CREATININE, SERUM 0.8 mg/dL (0.57-1.11); MAGNESIUM 2.4 MG/DL (1.3-2.1); PHOSPHORUS 2.4 MG/DL (2.3-4.7); POTASSIUM 4.9 mmol/L (3.5-5.1)
[2024-07-19 10:30] LABS: ABG PH 7.34 (7.35-7.45)
[2024-07-19 10:31] LABS: ABG HCO3 45 mmol/L (22-26); ABG PCO2 82 mmHg (35-45); ABG PO2 114 mmHg (80-105); ABG TCO2 47
[2024-07-19] MEDS ORDERED: IOPAMIDOL 370 MG/ML 100 ML INFUS..BTL INJ ONE (13:08)
[2024-07-20] VITALS (19 sets, daily range): BP systolic 103–156; BP diastolic 54–100; PULSE 69–91; RESP 13–27; TEMP 98.7–98.9; O2SAT 95–100
[2024-07-20] MEDS: FUROSEMIDE INJ 10 MG/ML 4 ML VIAL IV ONE (09:00)
[2024-07-20] MEDS ORDERED: Insulin Lispro SQ (16:29)
[2024-07-20] MEDS ORDERED: CEFAZOLIN2 GM/100 M IV (16:29)
[2024-07-20] MEDS ORDERED: Insulin Glargine SC (16:29)
[2024-07-20] MEDS ORDERED: Albuterol/Ipratropium Nebulize NEB (16:29)
== END 2024-07-20 18:50 | DRG 871 ==
LOC: ER 09:09 → ERHOLD 10:05 → ICU 20:49
PROVIDERS: ADMIT Internal Medicine; ATTEND Internal Medicine
PROC: 4A133R1 Monitoring of Arterial Saturation, Peripheral, Percutaneous Approach (ICD-10-PCS; principal; 2024-07-16)
PROC: 3E0333Z Introduction of Anti-inflammatory into Peripheral Vein, Percutaneous Approach (ICD-10-PCS; 2024-07-16)
PROC: 5A09357 Assistance with Respiratory Ventilation, Less than 24 Consecutive Hours, Continuous Positive Airway Pressure (ICD-10-PCS; 2024-07-17)
DX: A41.9 Sepsis, unspecified organism (principal); J18.9 Pneumonia, unspecified organism; J96.21 Acute and chronic respiratory failure with hypoxia; J96.22 Acute and chronic respiratory failure with hypercapnia; E66.2 Morbid (severe) obesity with alveolar hypoventilation; L03.115 Cellulitis of right lower limb; L03.116 Cellulitis of left lower limb; I50.32 Chronic diastolic (congestive) heart failure; E87.20 Acidosis, unspecified; Z68.43 Body mass index [BMI] 50.0-59.9, adult; I11.0 Hypertensive heart disease with heart failure; R65.20 Severe sepsis without septic shock; Z99.81 Dependence on supplemental oxygen; Z11.52 Encounter for screening for COVID-19; E11.40 Type 2 diabetes mellitus with diabetic neuropathy, unspecified; E11.65 Type 2 diabetes mellitus with hyperglycemia; I89.0 Lymphedema, not elsewhere classified; R53.81 Other malaise; M47.812 Spondylosis without myelopathy or radiculopathy, cervical region; E03.9 Hypothyroidism, unspecified; I83.12 Varicose veins of left lower extremity with inflammation; I83.11 Varicose veins of right lower extremity with inflammation; Z91.199 Patient's noncompliance with other medical treatment and regimen due to unspecified reason; Z79.4 Long term (current) use of insulin; Z79.890 Hormone replacement therapy; Z90.49 Acquired absence of other specified parts of digestive tract; Z98.84 Bariatric surgery status
CPT/HCPCS: 36415; 36600; 71045; 80048; 80053; 82550; 82805; 82948; 83605; 83690; 83735; 83880; 84100; 84484; 85025; 87040; 93005; 93970; 94640; 94660; 94799; 99252; 99285; J0690; J1650; J1815; J1940; J2405; J2543; J2919; J7050; Q9967; U0002

== ENCOUNTER 2024-11-06 15:55 | Inpatient (IN) | payer MEDICARE ==
[~2024-11-06] VITALS: Ht 172.7 cm; Wt 164.2 kg
[2024-11-06 15:55] VITALS: TEMP 98.8
[~2024-11-06 15:55] MED LIST changes: +Albuterol/Ipratropium Nebulize NEB; +CEFAZOLIN2 GM/100 M IV; +Insulin Glargine SC; +Insulin Lispro SQ
[2024-11-06 16:37] LABS: BASOPHILS % 0.4 % (0.0-1.0); EOSINOPHILS # (AUTO) 0.3 (0.0-0.4); EOSINOPHILS % 4.9 % (0.0-6.0); HEMATOCRIT 40.5 % (34.2-44.1); HEMOGLOBIN 12.1 g/dL (12.0-16.0); LYMPHOCYTES # (AUTO) 0.9 (1.0-3.2); LYMPHOCYTES % 13.5 % (18.0-39.1); MEAN CORPUSCULAR HEMOGLOBIN 27.1 pg (28-32); MEAN CORPUSCULAR HGB CONC 29.9 g/dL (31-35); MEAN CORPUSCULAR VOLUME 90.6 fL (81-99); MONOCYTES # (AUTO) 0.6 (0.2-0.8); NEUTROPHILS # (AUTO) 4.8 (2.1-6.9); NEUTROPHILS % 71.8 % (38.7-80.0); PLATELET COUNT 216 x10e3/uL (140-360); RED BLOOD COUNT 4.47 x10e6/uL (3.6-5.1); WHITE BLOOD COUNT 6.68 x10e3/uL (4.8-10.8)
[2024-11-06 16:41] LABS: INR 0.9; PROTHROMBIN TIME 12.7 seconds (11.9-14.5)
[2024-11-06 16:51] LABS: ALBUMIN 3.7 g/dL (3.5-5.0); ALBUMIN/GLOBULIN RATIO 0.8 (0.8-2.0); BILIRUBIN,TOTAL 0.8 mg/dL (0.2-1.2); CALCIUM 9.6 mg/dL (8.4-10.2); CREATININE, SERUM 0.85 mg/dL (0.57-1.11); MAGNESIUM 2.1 MG/DL (1.3-2.1); TOTAL PROTEIN 8.5 g/dL (6.5-8.1)
[2024-11-06 16:57] LABS: TROPONIN I 0.01 ng/mL (0-0.300)
[2024-11-06] MEDS ORDERED: Morphine 2mg Syringe 2 MG/ML SYR IV PRN (17:45)
[2024-11-06] MEDS ORDERED: ONDANSETRON HCL INJ 2MG/ML 2ML 2 MG/ML VIAL IV PRN (17:45)
[2024-11-06] MEDS ORDERED: SODIUM CHLORIDE FLUSH 10 ML SYR INJ PRN (17:45)
[2024-11-06 20:29] VITALS: PULSE 74; RESP 20; O2SAT 100
[2024-11-06] MEDS: FUROSEMIDE INJ 10 MG/ML 2 ML VIAL IV SCH ×2 (20:30→23:35)
[2024-11-06 21:41] VITALS: BP 128/55; PULSE 80; RESP 22; TEMP 98.2; O2SAT 98
[2024-11-06] MEDS: INSULIN GLARGINE 100 UNITS/ML VIAL SQ SCH (22:15)
[2024-11-06] MEDS ORDERED: MAGNESIUM/ALUMINUM/SIMETHICONE 30 ML UDC PO PRN (22:15)
[2024-11-06] MEDS ORDERED: ALBUTEROL SULF 0.083% NEB SOLN 3 ML NEB NEB PRN (22:15)
[2024-11-06] MEDS ORDERED: HYDRALAZINE HCL 20 MG/ML VIAL IV PRN (22:15)
[2024-11-06] MEDS ORDERED: GUAIFENESIN/DEXTROMETHORPHAN LIQD 5 ML UDC PO PRN (22:15)
[2024-11-06] MEDS ORDERED: MELATONIN 3 MG TAB PO PRN (22:15)
[2024-11-06] MEDS ORDERED: POLYETHYLENE GLYCOL 3350 17 GM PACK PO PRN (22:15)
[2024-11-06] MEDS ORDERED: DEXTROSE 50% SYRINGE 50 ML IV PRN (22:15)
[2024-11-07] VITALS (11 sets, daily range): BP systolic 128–160; BP diastolic 52–83; PULSE 71–108; RESP 16–21; TEMP 97.3–98.3; O2SAT 96–100
[2024-11-07] MEDS ORDERED: POTASSIUM CHLO10 ME1 PO (03:09)
[2024-11-07] MEDS ORDERED: NOVOLOG100 UNIT/1 SC (03:12)
[2024-11-07] MEDS ORDERED: INSULIN GL100 UNIT/1 SQ (03:12)
[2024-11-07 05:57] LABS: BASOPHILS % 0.4 % (0.0-1.0); EOSINOPHILS # (AUTO) 0.3 (0.0-0.4); EOSINOPHILS % 4.3 % (0.0-6.0); HEMATOCRIT 38.3 % (34.2-44.1); HEMOGLOBIN 11.2 g/dL (12.0-16.0); LYMPHOCYTES # (AUTO) 0.9 (1.0-3.2); LYMPHOCYTES % 12.3 % (18.0-39.1); MEAN CORPUSCULAR HEMOGLOBIN 26.8 pg (28-32); MEAN CORPUSCULAR HGB CONC 29.2 g/dL (31-35); MEAN CORPUSCULAR VOLUME 91.6 fL (81-99); MONOCYTES # (AUTO) 0.7 (0.2-0.8); MONOCYTES % 9.3 % (4.4-11.3); NEUTROPHILS # (AUTO) 5.3 (2.1-6.9); NEUTROPHILS % 73.3 % (38.7-80.0); PLATELET COUNT 208 x10e3/uL (140-360); RED BLOOD COUNT 4.18 x10e6/uL (3.6-5.1); RED CELL DISTRIBUTION WIDTH 15.2 % (11.7-14.4); WHITE BLOOD COUNT 7.18 x10e3/uL (4.8-10.8)
[2024-11-07 06:21] LABS: ALBUMIN 3.3 g/dL (3.5-5.0); ALBUMIN/GLOBULIN RATIO 0.8 (0.8-2.0); BILIRUBIN,TOTAL 0.8 mg/dL (0.2-1.2); CALCIUM 9.2 mg/dL (8.4-10.2); CREATININE, SERUM 0.84 mg/dL (0.57-1.11); TOTAL PROTEIN 7.5 g/dL (6.5-8.1)
[2024-11-07 06:53] LABS: TROPONIN I 0.014 ng/mL (0-0.300)
[2024-11-07] MEDS: INSULIN REGULAR, HUMAN 100 UNIT/1 ML SQ SCH (08:23)
[2024-11-07] MEDS: DOCUSATE SODIUM 100 MG CAP PO SCH (08:25)
[2024-11-07 11:03] LABS: TROPONIN I 0.007 ng/mL (0-0.300)
[2024-11-07] MEDS: Doxycycline IV 100 MG in SODIUM CHLORIDE 0.9% 100 ML IV SCH (12:46)
[2024-11-07] MEDS ORDERED: ERGOCALCIFEROL 1.25 MG PO SCH (13:00)
[2024-11-07] MEDS ORDERED: INSULIN GLARGINE 100 UNITS/ML VIAL SQ SCH (17:00)
[2024-11-07] MEDS: ENOXAPARIN SOD INJ 40 MG/0.4 ML SYR SC SCH (17:27)
[2024-11-07] MEDS: DIPHENHYDRAMINE HCL INJ 50 MG/ML VIAL IV PRN (17:28)
[2024-11-07] MEDS: INSULIN LISPRO 100 UNIT/1 ML 3ML VIAL SQ SCH (17:35)
[2024-11-08] VITALS (10 sets, daily range): BP systolic 105–145; BP diastolic 68–88; PULSE 79–99; RESP 16–20; TEMP 97.8–98.6; O2SAT 94–99
[2024-11-08] MEDS: LEVOTHYROXINE SODIUM 100 MCG TAB PO SCH (05:58)
[2024-11-08 06:06] LABS: BASOPHILS % 0.3 % (0.0-1.0); EOSINOPHILS # (AUTO) 0.3 (0.0-0.4); EOSINOPHILS % 5.7 % (0.0-6.0); HEMATOCRIT 39.4 % (34.2-44.1); HEMOGLOBIN 11.6 g/dL (12.0-16.0); LYMPHOCYTES # (AUTO) 0.8 (1.0-3.2); LYMPHOCYTES % 13.3 % (18.0-39.1); MEAN CORPUSCULAR HGB CONC 29.4 g/dL (31-35); MEAN CORPUSCULAR VOLUME 91.8 fL (81-99); MONOCYTES # (AUTO) 0.6 (0.2-0.8); MONOCYTES % 9.7 % (4.4-11.3); NEUTROPHILS # (AUTO) 4.1 (2.1-6.9); NEUTROPHILS % 70.3 % (38.7-80.0); PLATELET COUNT 189 x10e3/uL (140-360); RED BLOOD COUNT 4.29 x10e6/uL (3.6-5.1); RED CELL DISTRIBUTION WIDTH 15.3 % (11.7-14.4); WHITE BLOOD COUNT 5.79 x10e3/uL (4.8-10.8)
[2024-11-08 06:48] LABS: ALBUMIN 3.3 g/dL (3.5-5.0); ALBUMIN/GLOBULIN RATIO 0.8 (0.8-2.0); ANION GAP 14.7 mmol/L (8-16); CALCIUM 9.2 mg/dL (8.4-10.2); CREATININE, SERUM 0.89 mg/dL (0.57-1.11); POTASSIUM 4.7 mmol/L (3.5-5.1); TOTAL PROTEIN 7.7 g/dL (6.5-8.1)
[2024-11-08] MEDS: POTASSIUM CHLORIDE 10MEQ EA PO SCH (08:34)
[2024-11-08] MEDS: FUROSEMIDE 40 MG TAB PO SCH (08:34)
[2024-11-08] MEDS: HYDROCORTISONE 1% CREAM 30 GM TUBE TOP PRN (12:26)
[2024-11-08] MEDS: AMMONIUM LACTATE 12% LOTION 225GM BTL TOP SCH (17:24)
[2024-11-08] MEDS: ACETAMINOPHEN 325 MG TAB PO PRN (21:28)
[2024-11-09] VITALS (9 sets, daily range): BP systolic 100–156; BP diastolic 49–74; PULSE 76–102; RESP 18–21; TEMP 97–98.7; O2SAT 96–100
[2024-11-09] MEDS: FUROSEMIDE INJ 10 MG/ML 4 ML VIAL IV SCH
[2024-11-09 06:03] LABS: BASOPHILS % 0.4 % (0.0-1.0); EOSINOPHILS # (AUTO) 0.3 (0.0-0.4); HEMATOCRIT 39.5 % (34.2-44.1); HEMOGLOBIN 11.5 g/dL (12.0-16.0); LYMPHOCYTES # (AUTO) 0.9 (1.0-3.2); LYMPHOCYTES % 16.4 % (18.0-39.1); MEAN CORPUSCULAR HEMOGLOBIN 27.1 pg (28-32); MEAN CORPUSCULAR HGB CONC 29.1 g/dL (31-35); MEAN CORPUSCULAR VOLUME 92.9 fL (81-99); MONOCYTES # (AUTO) 0.6 (0.2-0.8); MONOCYTES % 10.9 % (4.4-11.3); NEUTROPHILS # (AUTO) 3.8 (2.1-6.9); NEUTROPHILS % 65.9 % (38.7-80.0); PLATELET COUNT 205 x10e3/uL (140-360); RED BLOOD COUNT 4.25 x10e6/uL (3.6-5.1); WHITE BLOOD COUNT 5.68 x10e3/uL (4.8-10.8)
[2024-11-09 06:25] LABS: ANION GAP 13.4 mmol/L (8-16); CREATININE, SERUM 0.84 mg/dL (0.57-1.11); POTASSIUM 4.4 mmol/L (3.5-5.1)
[2024-11-09 18:57] LABS: CLARITY,URINE CLEAR (CLEAR); COLOR,URINE YELLOW (YELLOW); LEUKOCYTE ESTERASE ,URINE NEGATIVE (NEGATIVE); NITRITE,URINE NEGATIVE (NEGATIVE); PH,URINE 7.5 (5 - 7); PROTEIN,URINE DIPSTICK NEGATIVE (NEGATIVE)
[2024-11-09 18:58] LABS: BILIRUBIN,URINE NEGATIVE (NEGATIVE); GLUCOSE, URINE NEGATIVE (NEGATIVE); KETONES,URINE NEGATIVE (NEGATIVE); URINE UROBILINOGEN 0.2 mg/dL (0.2 - 1)
[2024-11-09 19:12] LABS: BACTERIA,URINE FEW /HPF; EPITHELIAL CELLS,URINE FEW /LPF; RBC,URINE 0-5 /HPF (0-5); WBC,URINE (MAN) 0-5 /HPF (0-5)
[2024-11-09 19:13] LABS: OTHER CRYSTALS,URINE PRESENT
[2024-11-10] VITALS: BP 138/68; PULSE 93; RESP 17; TEMP 98.4; O2SAT 97
[2024-11-10 04:00] VITALS: BP 143/79; PULSE 95; RESP 17; TEMP 97.7; O2SAT 96
[2024-11-10 06:33] VITALS: PULSE 75; RESP 20; O2SAT 96
[2024-11-10 08:22] VITALS: BP 142/68; PULSE 98; RESP 20; TEMP 97.6; O2SAT 98
[2024-11-10 08:36] LABS: ANION GAP 14.2 mmol/L (8-16); CALCIUM 9.5 mg/dL (8.4-10.2); CREATININE, SERUM 0.8 mg/dL (0.57-1.11); POTASSIUM 4.2 mmol/L (3.5-5.1)
[2024-11-10] MEDS: LACTOBACILLUS ACIDOPHILUS CAPSULE PO SCH (11:39)
[2024-11-10] MEDS: LOPERAMIDE HCL 2 MG CAP PO PRN (11:39)
[2024-11-10 12:01] VITALS: BP 150/75; PULSE 93; RESP 20; TEMP 98.1; O2SAT 98
[2024-11-10] MEDS: FUROSEMIDE 40 MG TAB PO ONE (14:03)
== END 2024-11-10 16:59 | DRG 189 ==
LOC: ER 16:22 → ERHOLD 17:49 → MED/SURG3 21:32
PROVIDERS: ADMIT Internal Medicine; ATTEND Internal Medicine
DX: J96.21 Acute and chronic respiratory failure with hypoxia (principal); E66.2 Morbid (severe) obesity with alveolar hypoventilation; Z68.43 Body mass index [BMI] 50.0-59.9, adult; I50.32 Chronic diastolic (congestive) heart failure; L03.116 Cellulitis of left lower limb; L03.115 Cellulitis of right lower limb; I87.313 Chronic venous hypertension (idiopathic) with ulcer of bilateral lower extremity; J96.22 Acute and chronic respiratory failure with hypercapnia; I89.0 Lymphedema, not elsewhere classified; I27.81 Cor pulmonale (chronic); I11.0 Hypertensive heart disease with heart failure; R53.81 Other malaise; J45.909 Unspecified asthma, uncomplicated; Z99.81 Dependence on supplemental oxygen; E11.65 Type 2 diabetes mellitus with hyperglycemia; E11.40 Type 2 diabetes mellitus with diabetic neuropathy, unspecified; Z79.4 Long term (current) use of insulin; D64.9 Anemia, unspecified; F41.8 Other specified anxiety disorders; Z98.84 Bariatric surgery status; E03.9 Hypothyroidism, unspecified; I45.10 Unspecified right bundle-branch block; L27.1 Localized skin eruption due to drugs and medicaments taken internally; T36.1X5A Adverse effect of cephalosporins and other beta-lactam antibiotics, initial encounter; L29.9 Pruritus, unspecified; M47.812 Spondylosis without myelopathy or radiculopathy, cervical region; Y92.009 Unspecified place in unspecified non-institutional (private) residence as the place of occurrence of the external cause; Z79.899 Other long term (current) drug therapy
CPT/HCPCS: 36415; 71045; 80048; 80053; 81001; 82550; 82948; 83036; 83735; 83880; 84484; 85025; 85610; 85730; 93005; 93306; 93970; 94799; 96372; 99252; 99284; J1200; J1650; J1940; J7050

== ENCOUNTER 2025-04-24 14:11 | Inpatient (IN) | payer MEDICARE ==
[~2025-04-24] VITALS: Ht 172.7 cm; Wt 164.2 kg
[~2025-04-24 14:11] MED LIST changes: +INSULIN GL100 UNIT/1 SQ; +NOVOLOG100 UNIT/1 SC; +POTASSIUM CHLO10 ME1 PO
[2025-04-24 15:05] LABS: BASOPHILS % 0.4 % (0.0-1.0); EOSINOPHILS % 3.1 % (0.0-6.0); LYMPHOCYTES % 11.6 % (18.0-39.1); MONOCYTES % 10.3 % (4.4-11.3); NEUTROPHILS % 74.2 % (38.7-80.0); RED CELL DISTRIBUTION WIDTH 14.9 % (11.7-14.4)
[2025-04-24 15:18] LABS: INR 0.97
[2025-04-24 15:28] LABS: EST GLOMERULAR FILTRATION RATE 65.0 ML/MIN (>=60)
[2025-04-24 16:28] LABS: ABG PH 7.40 (7.35-7.45)
[2025-04-24 16:29] LABS: ABG BASE EXCESS 12.0 mmol/L (-2 - 3); ABG HCO3 37 mmol/L (22-26); ABG OXYGEN SATURATION 96.0 % (95-98); ABG PCO2 60 mmHg (35-45); ABG PO2 89 mmHg (80-105); ABG TCO2 39
[2025-04-24] MEDS: FUROSEMIDE INJ 10 MG/ML 4 ML VIAL IV ONE (17:06)
[2025-04-24 19:15] VITALS: PULSE 108; RESP 16; TEMP 99.6
[2025-04-24] MEDS ORDERED: ACETAMINOPHEN 325 MG TAB ONE (19:22)
[2025-04-24] MEDS: ACETAMINOPHEN 325 MG TAB PO PRN (19:33)
[2025-04-24 20:25] VITALS: PULSE 98; RESP 16; O2SAT 98
[2025-04-24 20:58] VITALS: BP 145/78; PULSE 103; RESP 20; TEMP 99; O2SAT 98
[2025-04-24 23:22] VITALS: BP 154/66; PULSE 107; RESP 17; TEMP 98.6; O2SAT 99
[2025-04-24 23:27] VITALS: BP 154/66; PULSE 107; RESP 17; TEMP 98.6; O2SAT 99
[2025-04-25] VITALS (12 sets, daily range): BP systolic 134–173; BP diastolic 50–74; PULSE 96–111; RESP 16–22; TEMP 97.8–98.6; O2SAT 95–100
[2025-04-25 05:36] LABS: BASOPHILS % 0.6 % (0.0-1.0); EOSINOPHILS % 2.9 % (0.0-6.0); LYMPHOCYTES % 11.0 % (18.0-39.1); MONOCYTES % 13.5 % (4.4-11.3); NEUTROPHILS % 71.4 % (38.7-80.0); RED CELL DISTRIBUTION WIDTH 14.9 % (11.7-14.4)
[2025-04-25 06:27] LABS: CHOL/HDL RATIO 2.7 (3.0-3.6); EST GLOMERULAR FILTRATION RATE 66.0 ML/MIN (>=60); LDL CHOLESTEROL 70.0 MG/DL (60-130)
[2025-04-25] MEDS ORDERED: DEXTROSE 50% SYRINGE 50 ML IV PRN (08:00)
[2025-04-25] MEDS: Doxycycline IV 100 MG in SODIUM CHLORIDE 0.9% 100 ML IV SCH (09:06)
[2025-04-25] MEDS: ACETAZOLAMIDE SODIUM 500 MG/VIAL IV SCH (09:07)
[2025-04-25] MEDS: FUROSEMIDE INJ 10 MG/ML 4 ML VIAL IV SCH ×2 (09:07→20:29)
[2025-04-25] MEDS: LEVOTHYROXINE SODIUM 100 MCG TAB PO SCH (09:07)
[2025-04-25] MEDS: INSULIN GLARGINE 100 UNITS/ML VIAL SQ SCH (09:09)
[2025-04-25] MEDS: INSULIN LISPRO 100 UNIT/1 ML 3ML VIAL SQ SCH (11:57)
[2025-04-25] MEDS: LOSARTAN POTASSIUM 25 MG TAB PO SCH (23:15)
[2025-04-25] MEDS: PIOGLITAZONE HCL 45 MG TAB PO SCH (23:15)
[2025-04-25] MEDS: METFORMIN HCL 500 MG TAB PO SCH (23:15)
[2025-04-26] VITALS (11 sets, daily range): BP systolic 129–178; BP diastolic 53–81; PULSE 90–116; RESP 14–26; TEMP 97.4–99.3; O2SAT 95–100
[2025-04-26 05:53] LABS: BASOPHILS % 0.5 % (0.0-1.0); EOSINOPHILS % 3.9 % (0.0-6.0); LYMPHOCYTES % 16.8 % (18.0-39.1); MONOCYTES % 17.9 % (4.4-11.3); NEUTROPHILS % 60.2 % (38.7-80.0); RED CELL DISTRIBUTION WIDTH 14.8 % (11.7-14.4)
[2025-04-26 06:26] LABS: EST GLOMERULAR FILTRATION RATE 56.0 ML/MIN (>=60)
[2025-04-26] MEDS ORDERED: METFORMIN HCL 500 MG TAB PO SCH (08:00)
[2025-04-26] MEDS ORDERED: PIOGLITAZONE HCL 45 MG TAB PO SCH (09:00)
[2025-04-26] MEDS: SITAGLIPTIN 100 MG TAB PO SCH (09:20)
[2025-04-26] MEDS: SODIUM CHLORIDE 0.9% 250ML 250 ML ONE (16:03)
[2025-04-26] MEDS: INSULIN GLARGINE 100 UNITS/ML VIAL SQ SCH (21:14)
[2025-04-27] VITALS (18 sets, daily range): BP systolic 131–181; BP diastolic 60–79; PULSE 85–105; RESP 16–25; TEMP 97.2–99; O2SAT 95–100
[2025-04-27 06:55] LABS: BASOPHILS % 0.7 % (0.0-1.0); EOSINOPHILS % 3.0 % (0.0-6.0); LYMPHOCYTES % 11.5 % (18.0-39.1); MONOCYTES % 13.1 % (4.4-11.3); NEUTROPHILS % 71.1 % (38.7-80.0); RED CELL DISTRIBUTION WIDTH 14.6 % (11.7-14.4)
[2025-04-27 07:02] LABS: EST GLOMERULAR FILTRATION RATE 47.0 ML/MIN (>=60)
[2025-04-27] MEDS: FUROSEMIDE INJ 10 MG/ML 4 ML VIAL IV SCH (09:46)
[2025-04-27] MEDS: ONDANSETRON HCL INJ 2MG/ML 2ML 2 MG/ML VIAL IV PRN (11:44)
[2025-04-27 20:04] LABS: ABG PH 7.20 (7.35-7.45)
[2025-04-27 20:05] LABS: ABG PCO2 103 mmHg (35-45)
[2025-04-27 20:06] LABS: ABG BASE EXCESS 12.0 mmol/L (-2 - 3); ABG HCO3 40 mmol/L (22-26); ABG OXYGEN SATURATION 97.0 % (95-98); ABG PO2 113 mmHg (80-105); ABG TCO2 43
[2025-04-28] VITALS (18 sets, daily range): BP systolic 111–146; BP diastolic 49–73; PULSE 81–99; RESP 15–24; TEMP 97.8–99.2; O2SAT 91–100
[2025-04-28 06:30] LABS: BASOPHILS % 0.1 % (0.0-1.0); EOSINOPHILS % 0.1 % (0.0-6.0); LYMPHOCYTES % 10.4 % (18.0-39.1); MONOCYTES % 11.6 % (4.4-11.3); NEUTROPHILS % 77.4 % (38.7-80.0); RED CELL DISTRIBUTION WIDTH 14.6 % (11.7-14.4)
[2025-04-28 06:41] LABS: ABG PCO2 73 mmHg (35-45); ABG PH 7.34 (7.35-7.45)
[2025-04-28 06:42] LABS: ABG BASE EXCESS 13.0 mmol/L (-2 - 3); ABG PO2 90 mmHg (80-105)
[2025-04-28 06:43] LABS: ABG HCO3 39 mmol/L (22-26); ABG OXYGEN SATURATION 96.0 % (95-98); ABG TCO2 41
[2025-04-28 06:47] LABS: EST GLOMERULAR FILTRATION RATE 51.0 ML/MIN (>=60)
[2025-04-28] MEDS: ACETAZOLAMIDE 250 MG TAB PO SCH (11:02)
[2025-04-29] VITALS (37 sets, daily range): BP systolic 85–153; BP diastolic 43–75; PULSE 75–106; RESP 14–34; TEMP 97.8–99.8; O2SAT 91–100
[2025-04-29 05:19] LABS: BASOPHILS % 0.5 % (0.0-1.0); EOSINOPHILS % 1.8 % (0.0-6.0); LYMPHOCYTES % 11.9 % (18.0-39.1); MONOCYTES % 11.3 % (4.4-11.3); NEUTROPHILS % 73.9 % (38.7-80.0); RED CELL DISTRIBUTION WIDTH 14.8 % (11.7-14.4)
[2025-04-29 05:46] LABS: EST GLOMERULAR FILTRATION RATE 58.0 ML/MIN (>=60)
[2025-04-29] MEDS: DOCUSATE SODIUM 100 MG CAP PO SCH (08:27)
[2025-04-29 11:36] LABS: ABG BASE EXCESS 13.0 mmol/L (-2 - 3); ABG HCO3 38 mmol/L (22-26); ABG PCO2 58 mmHg (35-45); ABG PH 7.42 (7.35-7.45); ABG PO2 126 mmHg (80-105); ABG TCO2 39
[2025-04-29 11:37] LABS: ABG OXYGEN SATURATION 99.0 % (95-98)
[2025-04-29] MEDS: SPIRONOLACTONE 25 MG TAB PO SCH (21:08)
[2025-04-29] MEDS: AMMONIUM LACTATE 12% LOTION 225GM BTL TOP SCH (21:09)
[2025-04-30] VITALS (27 sets, daily range): BP systolic 114–159; BP diastolic 55–75; PULSE 84–103; RESP 19–36; TEMP 97.8–98.4; O2SAT 91–100
[2025-04-30 04:45] LABS: BASOPHILS % 0.4 % (0.0-1.0); EOSINOPHILS % 3.1 % (0.0-6.0); LYMPHOCYTES % 11.8 % (18.0-39.1); MONOCYTES % 11.0 % (4.4-11.3); NEUTROPHILS % 72.9 % (38.7-80.0); RED CELL DISTRIBUTION WIDTH 14.8 % (11.7-14.4)
[2025-04-30 05:08] LABS: EST GLOMERULAR FILTRATION RATE 75.0 ML/MIN (>=60)
[2025-05-01] VITALS (17 sets, daily range): BP systolic 118–148; BP diastolic 53–71; PULSE 79–99; RESP 19–32; TEMP 97–99.2; O2SAT 91–99
[2025-05-02] VITALS (27 sets, daily range): BP systolic 118–156; BP diastolic 57–80; PULSE 78–97; RESP 16–32; TEMP 98.4–99.1; O2SAT 92–100
[2025-05-02] MEDS: ONDANSETRON HCL INJ 2MG/ML 2ML 2 MG/ML VIAL IV PRN (09:34)
[2025-05-03] VITALS (18 sets, daily range): BP systolic 119–149; BP diastolic 56–75; PULSE 73–93; RESP 15–25; TEMP 97.4–98.7; O2SAT 92–100
[2025-05-03 05:26] LABS: RED CELL DISTRIBUTION WIDTH 14.5 % (11.7-14.4)
[2025-05-03 06:07] LABS: EST GLOMERULAR FILTRATION RATE 83.0 ML/MIN (>=60)
[2025-05-03] MEDS: ACETAZOLAMIDE 250 MG TAB PO SCH (09:58)
[2025-05-03 11:16] LABS: EOSINOPHILS % (MANUAL) 5 % (0-7); LYMPHOCYTES % (MANUAL) 20 % (19-48); MONOCYTES % (MANUAL) 12 % (3.4-9.0); NEUTROPHILS % (MANUAL) 63 % (40-74); PLATELET ESTIMATE ADEQUATE; PLATELET MORPHOLOGY COMMENT NORMAL
[2025-05-03] MEDS: NYSTATIN 15 GM POWDER UD BTL TOP SCH (17:30)
[2025-05-04 04:00] VITALS: BP 146/80; PULSE 92; RESP 18; TEMP 97.8; O2SAT 96
[2025-05-04 06:26] LABS: BASOPHILS % 0.5 % (0.0-1.0); EOSINOPHILS % 3.1 % (0.0-6.0); LYMPHOCYTES % 14.6 % (18.0-39.1); MONOCYTES % 10.2 % (4.4-11.3); NEUTROPHILS % 71.1 % (38.7-80.0); RED CELL DISTRIBUTION WIDTH 14.4 % (11.7-14.4)
[2025-05-04 06:52] LABS: EST GLOMERULAR FILTRATION RATE 80.0 ML/MIN (>=60)
[2025-05-04 08:00] VITALS: BP 145/74; PULSE 88; RESP 22; TEMP 97.6; O2SAT 98
[2025-05-04 08:02] VITALS: PULSE 82; RESP 18; O2SAT 95
[2025-05-04 08:15] VITALS: BP 145/74; PULSE 82; RESP 18; TEMP 97.6; O2SAT 95
[2025-05-04 10:24] VITALS: PULSE 88; RESP 18; O2SAT 98
[2025-05-04 11:00] VITALS: BP 159/60; PULSE 83; RESP 22; TEMP 97.6; O2SAT 100
[2025-05-04] MEDS: PANTOPRAZOLE SOD 40 MG TABEC PO SCH (11:25)
[2025-05-04] MEDS: DOXYCYCLINE HYCLATE TABLET 100 MG TAB PO SCH (11:25)
[2025-05-05] MEDS ORDERED: PANTOPRAZOLE SOD 40 MG TABEC PO SCH (09:00)
[2025-05-13 06:12] LABS: ABG BASE EXCESS 12.0 mmol/L (-2 - 3); ABG HCO3 40.0 mmol/L (22-26); ABG OXYGEN SATURATION 97.0 % (95-98); ABG PCO2 103.0 mmHg (35-45); ABG PH 7.2 (7.35-7.45); ABG PO2 113.0 mmHg (80-105); ABG TCO2 43.0
[2025-05-13 06:12] LABS: ABG BASE EXCESS 12.0 mmol/L (-2 - 3); ABG HCO3 37 mmol/L (22-26); ABG OXYGEN SATURATION 96.0 % (95-98); ABG PCO2 60 mmHg (35-45); ABG PH 7.40 (7.35-7.45); ABG PO2 89 mmHg (80-105); ABG TCO2 39
[2025-05-13 06:12] LABS: ABG BASE EXCESS 13.0 mmol/L (-2 - 3); ABG HCO3 39.0 mmol/L (22-26); ABG OXYGEN SATURATION 96.0 % (95-98); ABG PCO2 73.0 mmHg (35-45); ABG PH 7.34 (7.35-7.45); ABG PO2 90.0 mmHg (80-105); ABG TCO2 41.0
[2025-05-13 06:12] LABS: ABG BASE EXCESS 13.0 mmol/L (-2 - 3); ABG HCO3 38 mmol/L (22-26); ABG OXYGEN SATURATION 99.0 % (95-98); ABG PCO2 58 mmHg (35-45); ABG PH 7.42 (7.35-7.45); ABG PO2 126 mmHg (80-105); ABG TCO2 39
== END 2025-05-04 11:36 | DRG 291 ==
LOC: ER 14:51 → ERHOLD 18:08 → MED/SURG2 20:44 → ICU 04-27 19:33 → MED/SURG3 05-03 14:17
PROVIDERS: ADMIT Internal Medicine; ATTEND Internal Medicine
PROC: 4A133R1 Monitoring of Arterial Saturation, Peripheral, Percutaneous Approach (ICD-10-PCS; principal; 2025-04-24)
PROC: 05HY33Z Insertion of Infusion Device into Upper Vein, Percutaneous Approach (ICD-10-PCS; 2025-04-26)
PROC: 5A0945A Assistance with Respiratory Ventilation, 24-96 Consecutive Hours, High Flow/Velocity Cannula (ICD-10-PCS; 2025-04-28)
DX: I11.0 Hypertensive heart disease with heart failure (principal); I50.33 Acute on chronic diastolic (congestive) heart failure; J96.21 Acute and chronic respiratory failure with hypoxia; J96.22 Acute and chronic respiratory failure with hypercapnia; E66.2 Morbid (severe) obesity with alveolar hypoventilation; L03.115 Cellulitis of right lower limb; L03.116 Cellulitis of left lower limb; E87.4 Mixed disorder of acid-base balance; Z68.43 Body mass index [BMI] 50.0-59.9, adult; G82.20 Paraplegia, unspecified; R62.7 Adult failure to thrive; F44.4 Conversion disorder with motor symptom or deficit; E11.42 Type 2 diabetes mellitus with diabetic polyneuropathy; E11.65 Type 2 diabetes mellitus with hyperglycemia; D64.9 Anemia, unspecified; I89.0 Lymphedema, not elsewhere classified; E03.9 Hypothyroidism, unspecified; I87.309 Chronic venous hypertension (idiopathic) without complications of unspecified lower extremity; J44.9 Chronic obstructive pulmonary disease, unspecified; R53.81 Other malaise; I87.8 Other specified disorders of veins; F41.9 Anxiety disorder, unspecified; F32.A Depression, unspecified; Z98.84 Bariatric surgery status; M19.90 Unspecified osteoarthritis, unspecified site; Z79.4 Long term (current) use of insulin; Z79.84 Long term (current) use of oral hypoglycemic drugs; Z79.890 Hormone replacement therapy; Z90.49 Acquired absence of other specified parts of digestive tract; Z88.1 Allergy status to other antibiotic agents
CPT/HCPCS: 36415; 36600; 71045; 80048; 80053; 80061; 82550; 82805; 82948; 83036; 83735; 83880; 84484; 85007; 85025; 85027; 85610; 85730; 87106; 93005; 94660; 94799; 96372; 99252; 99285; J1815; J1938; J2405; J2470; J7050